=== PATIENT | female | born 1980 | race Caucasian/White ===

== ENCOUNTER 2019-05-12 23:23 | Emergency (ER) | payer MEDICAID ==
[~2019-05-12] VITALS: Ht 157.5 cm; Wt 53.5 kg
[2019-05-12] MEDS ORDERED: predniSONE 20 MG TAB ONE (23:34)
[2019-05-12] MEDS ORDERED: hydrOXYzine (VISTARIL/ATARAX) 25 MG capsule/tablet ONE (23:35)
[2019-05-12 23:45] VITALS: BP 121/88
--- OUTSIDE RECORDS SUMMARY | 2019-05-13 00:26 | XMS REPORT | Continuity of Care Document ---
Author Organization Unknown Address Unknown Allergies There is no data. Medications There is no data. Problems There is no data. Procedures There is no data. Results There is no data. Encounters ACCT No. Visit Date/Time Discharge Status Pt. Type Provider Facility Loc./Unit Complaint [id number] 03/22/2019 16:00:00 03/22/2019 23:59:59 CLS Outpatient THANIA BARTON APRN [facility]
[2019-05-13] MEDS ORDERED: predniSONE 20 MG TAB PO ONE (00:30)
[2019-05-13] MEDS ORDERED: hydrOXYzine (VISTARIL/ATARAX) 25 MG capsule/tablet PO ONE (00:30)
--- NOTE | 2019-05-24 15:39 | ED Integumentary General ---
General Chief Complaint: Skin/Wound Problems Stated Complaint: BODY RASH Source: patient, RN notes reviewed Exam Limitations: no limitations History of Present Illness Date Seen by Provider: May 12, 2019 Time Seen by Provider: 23:25 Initial Comments Patient presents c/ c/o worsening poison lesley x 4 days. States she has been using an OTC topical creams/ benefit. (+) previous similar episodes. Timing/Duration: getting worse, other (x 4 days) Severity: moderate Location: generalized Possible Cause: other (poison lesley) Modifying Factors: worse with scratching Associated Symptoms: denies symptoms (x/ as noted.), rash Allergies and Home Medications Allergies Coded Allergies: Penicillins (Verified Allergy, Unknown, 05/13/19) Sulfa (Sulfonamide Antibiotics) (Verified Allergy, Unknown, 05/13/19) dexamethasone (Verified Allergy, Unknown, 05/13/19) Patient Home Medication List Home Medication List Reviewed: Yes Review of Systems Review of Systems Constitutional: see HPI : No Skin: see HPI, rash All Other Systems Reviewed Negative Unless Noted: Yes (Negative excepted noted.) Past Qxoehay-Ltthip-Crexju Hx Patient Social History Alcohol Use: Denies Use Recreational Drug Use: No Smoking Status: Current Everyday Smoker Type Used: Cigarettes 2nd Hand Smoke Exposure: No Recent Foreign Travel: No Contact w/Someone Who Travel: No Recent Infectious Disease Expo: No Recent Hopitalizations: No Physical Abuse: No Sexual Abuse: No Mistreated: No Fear: No Seasonal Allergies Seasonal Allergies: No Past Medical History Surgeries: Yes Section Respiratory: No Cardiac: No Neurological: No Genitourinary: No Gastrointestinal: No Musculoskeletal: No Endocrine: No HEENT: No Cancer: No Psychosocial: No Integumentary: No Blood Disorders: No Physical Exam Vital Signs Capillary Refill : Less Than 3 Seconds General Appearance: WD/WN, no apparent distress Cardiovascular: tachycardia Respiratory: no respiratory distress Neurologic/Psychiatric: no motor/sensory deficits, alert, oriented x 3 Skin: rash (c/w contact dermatitis such as poison lesley.) Progress/Results/Core Measures Results/Orders My Orders Orders - SERAFIN DUGGAN DO Hydroxyzine Cap/Tab (Vistaril) (05/13/19 00:30) Prednisone Tablet (Deltasone Tablet) (05/13/19 00:30) Prednisone Tablet (Deltasone Tablet) (05/12/19 23:34) Hydroxyzine Cap/Tab (Vistaril) (05/12/19 23:35) Blood Pressure Mean: 99 Departure Impression Primary Impression: Contact dermatitis due to poison lesley Disposition: 01 HOME, SELF-CARE Condition: Improved Departure-Patient Inst. Referrals: NO,LOCAL PHYSICIAN (PCP) Primary Care Physician SERAFIN DUGGAN DO May 24, 2019 15:39
--- OUTSIDE RECORDS SUMMARY | 2019-05-26 11:10 | XMS REPORT | Continuity of Care Document ---
Author Organization Unknown Address Unknown Allergies There is no data. Medications There is no data. Problems There is no data. Procedures There is no data. Results There is no data. Encounters ACCT No. Visit Date/Time Discharge Status Pt. Type Provider Facility Loc./Unit Complaint [id number] 03/22/2019 16:00:00 03/22/2019 23:59:59 CLS Outpatient THANIA BARTON APRN [facility]
== END 2019-05-12 23:45 | disposition home or self-care (01) ==
LOC: ER FS 23:24
DX: L23.7 Allergic contact dermatitis due to plants, except food (principal); F17.210 Nicotine dependence, cigarettes, uncomplicated; Z88.0 Allergy status to penicillin; Z88.2 Allergy status to sulfonamides; Z88.8 Allergy status to other drugs, medicaments and biological substances
CPT/HCPCS: 99283